=== PATIENT | female | born 1960 | race Caucasian/White ===

== ENCOUNTER 2017-08-10 18:09 | Emergency (ER) | payer MEDICAID, OTHER ==
[~2017-08-10] VITALS: Ht 160 cm; Wt 97.4 kg
[~2017-08-10 18:09] MED LIST: LISI10TA4 PO; NO HOME MEDS
[2017-08-10 19:20] LABS: PROTHROMBIN TIME 10.4 SECONDS (9.0-12.0)
[2017-08-10 19:23] LABS: CLARITY,URINE SLIGHTLY CLOUDY (Clear); COLOR,URINE YELLOW (Yellow); GLUCOSE, URINE NEGATIVE (Neg); KETONES,URINE NEGATIVE (Neg); LEUKOCYTE ESTERASE ,URINE NEGATIVE (Neg); NITRITES, URINE NEGATIVE (Neg); OCCULT BLOOD,URINE NEGATIVE (Neg); PROTEIN,URINE TRACE mg/dl (Neg); UROBILINOGEN,URINE 0.2 E.U/dL (0.2-1.0)
[2017-08-10 19:24] LABS: UA COLLECTION TYPE CLN CATCH MIDSTREAM
[2017-08-10 19:24] LABS: ALANINE AMINOTRANSFERASE 43 U/L (12-78); ALBUMIN 3.4 G/DL (3.4-5.0); ALBUMIN/GLOBULIN RATIO 0.9 (1.1-1.5); ALKALINE PHOSPHATASE 112 IU/L (46-116); ANION GAP 8 (8-16); ASPARTATE AMINO TRANSFERASE 34 U/L (10-37); BILIRUBIN,TOTAL 0.4 MG/DL (0.1-1.0); BLOOD UREA NITROGEN 13 MG/DL (7-18); BUN/CREATININE RATIO 15.1 (6.6-38.0); CALCIUM 8.8 MG/DL (8.5-10.1); CHLORIDE 101 MMOL/L (99-107); CREATININE 0.86 MG/DL (0.40-0.90); GLUCOSE 108 MG/DL (70-104); LIPASE 89 U/L (73-393); POTASSIUM 3.6 MMOL/L (3.5-5.1); SODIUM 133 MMOL/L (135-145); TOTAL CARBON DIOXIDE 24.3 MMOL/L (24-32); TOTAL PROTEIN 7.3 G/DL (6.4-8.2); eGFR 69 ML/MIN
[2017-08-10 19:25] LABS: BASOPHILS % (AUTO) 0.2 % (0-1); EOSINOPHILS # (AUTO) 0.1 X10'3 (0-0.9); EOSINOPHILS % (AUTO) 1.5 % (0-6); HEMATOCRIT 30.4 % (35.0-45.0); HEMOGLOBIN 9.4 g/dl (12.0-16.0); LYMPHOCYTES # (AUTO) 1.4 X10'3 (1.1-4.8); LYMPHOCYTES % (AUTO) 15.3 % (21-51); MEAN CORPUSCULAR HEMOGLOBIN 18.2 PG (27.0-31.0); MEAN CORPUSCULAR HGB CONC 30.7 % (33.0-36.5); MEAN CORPUSCULAR VOLUME 59.2 FL (78-98); MEAN PLATELET VOLUME 8.4 FL (7.4-10.4); MONOCYTES # (AUTO) 0.8 X10'3 (0-0.9); MONOCYTES % (AUTO) 8.4 % (2-12); NEUTROPHILS # (AUTO) 6.7 X10'3 (1.8-7.7); NEUTROPHILS % (AUTO) 74.6 % (42-75); PLATELET COUNT 252 X10'3 (140-440); RED BLOOD COUNT 5.14 X10'6 (4.20-5.60); RED CELL DISTRIBUTION WIDTH 21.8 % (11.5-14.5); WHITE BLOOD COUNT 8.9 X10'3 (4.5-11.0)
[2017-08-10 19:33] LABS: BACTERIA,URINE 4+ /HPF (Neg); MUCUS STRANDS MODERATE /LPF (Neg); RBC,URINE NONE SEEN /HPF (0-2); SQUAMOUS EPITHELIAL CELL,UR MANY /LPF (FEW); WBC,URINE 0-4 /HPF (0-4)
[2017-08-10 19:55] LABS: ANISOCYTOSIS 3+; HYPOCHROMASIA 1+; MICROCYTOSIS 3+; PLATELET ESTIMATE NORMAL; POLYCHROMASIA 1+
[2017-08-10] MEDS ORDERED: normal saline 1000ML IV soln IVB ONE ×2 (19:55→20:35)
[2017-08-10 19:56] LABS: ELLIPTOCYTES 1+; TARGET CELLS 1+
[2017-08-10] MEDS ORDERED: ondansetron/PF 4mg/2ml inj IV ONE (20:35)
[2017-08-10] MEDS ORDERED: ketorolac trometh. 30mg/ml inj. IV ONE (20:35)
[2017-08-10 22:16] VITALS: BP 146/97
== END 2017-08-10 22:17 | disposition home or self-care (01) ==
LOC: ER 18:10
DX: K76.89 Other specified diseases of liver (principal); D64.9 Anemia, unspecified; K59.00 Constipation, unspecified; F15.10 Other stimulant abuse, uncomplicated; Z87.442 Personal history of urinary calculi; Z79.899 Other long term (current) drug therapy
CPT/HCPCS: 36415; 74176; 80053; 81001; 83690; 85025; 85610; 96374; 96375; 99285; J1885; J2405; J7030

== ENCOUNTER 2020-03-11 12:02 | Emergency (ER) | payer MEDICAID ==
[~2020-03-11] VITALS: Ht 165.1 cm; Wt 106.8 kg
[2020-03-11] MEDS ORDERED: mag hydrox/Alum hydrox/simeth 30ml oral suspension PO ONE (14:35)
[2020-03-11] MEDS ORDERED: famotidine 20mg tablet PO ONE (14:35)
[2020-03-11] MEDS ORDERED: pantoprazole 40mg Tablet.DR PO ONE (14:35)
[2020-03-11 14:41] LABS: BASOPHILS # (AUTO) 0.1 X10'3 (0-0.2); BASOPHILS % (AUTO) 0.7 % (0-1); EOSINOPHILS # (AUTO) 0.1 X10'3 (0-0.9); EOSINOPHILS % (AUTO) 0.8 % (0-6); HEMATOCRIT 24.3 % (35.0-45.0); HEMOGLOBIN 7.3 g/dl (12.0-16.0); LYMPHOCYTES # (AUTO) 1.6 X10'3 (1.1-4.8); LYMPHOCYTES % (AUTO) 19.1 % (21-51); MEAN CORPUSCULAR HEMOGLOBIN 16.7 PG (27.0-31.0); MEAN CORPUSCULAR HGB CONC 30.1 g/dL (33.0-36.5); MEAN CORPUSCULAR VOLUME 55.5 FL (78-98); MEAN PLATELET VOLUME 8.3 FL (7.4-10.4); MONOCYTES # (AUTO) 0.5 X10'3 (0-0.9); MONOCYTES % (AUTO) 6.3 % (2-12); NEUTROPHILS % (AUTO) 73.1 % (42-75); PLATELET COUNT 353 X10'3 (140-440); RED BLOOD COUNT 4.38 X10'6 (4.20-5.60); RED CELL DISTRIBUTION WIDTH 22.9 % (11.5-14.5); WHITE BLOOD COUNT 8.2 X10'3 (4.5-11.0)
[2020-03-11 14:55] LABS: ALANINE AMINOTRANSFERASE 23 U/L (12-78); ALBUMIN 3.1 G/DL (3.4-5.0); ALBUMIN/GLOBULIN RATIO 0.8 (1.1-1.5); ALKALINE PHOSPHATASE 103 IU/L (46-116); ANION GAP 9 (8-16); ASPARTATE AMINO TRANSFERASE 14 U/L (10-37); BILIRUBIN,TOTAL 0.3 MG/DL (0.1-1.0); BLOOD UREA NITROGEN 20 MG/DL (7-18); CALCIUM 9.1 MG/DL (8.5-10.1); CHLORIDE 106 MMOL/L (99-107); GLUCOSE 106 MG/DL (70-104); POTASSIUM 4.4 MMOL/L (3.5-5.1); SODIUM 142 MMOL/L (135-145); TOTAL CARBON DIOXIDE 26.9 MMOL/L (24-32); TOTAL PROTEIN 6.8 G/DL (6.4-8.2); eGFR 57 ML/MIN
[2020-03-11 15:01] LABS: ANISOCYTOSIS 3+; HYPOCHROMASIA 1+; MICROCYTOSIS 3+; PLATELET ESTIMATE NORMAL; POLYCHROMASIA FEW
[2020-03-11 15:02] LABS: ELLIPTOCYTES 1+; TARGET CELLS FEW; TEAR DROP CELLS FEW
[2020-03-11] MEDS ORDERED: normal saline 1000ml 1,000 ML IV ONE (15:10)
--- NOTE | 2020-03-11 15:27 | NUR ---
TC FROM [facility] FOR CONDITION REPORT.
[2020-03-11 16:15] VITALS: BP 126/79
== END 2020-03-11 16:16 | disposition home or self-care (01) ==
LOC: ER 12:03
DX: D50.9 Iron deficiency anemia, unspecified (principal); R06.02 Shortness of breath; R07.89 Other chest pain; F15.90 Other stimulant use, unspecified, uncomplicated; Z87.442 Personal history of urinary calculi; Z98.890 Other specified postprocedural states; Z79.899 Other long term (current) drug therapy
CPT/HCPCS: 36415; 71045; 80053; 85008; 85025; 96360; 99284; J7030

== ENCOUNTER 2020-03-27 13:48 | Inpatient (IN) | payer MEDICAID ==
[~2020-03-27] VITALS: Ht 162.6 cm; Wt 100.5 kg
[2020-03-27] MEDS ORDERED: ondansetron/PF 4mg/2ml inj IV ONE (14:10)
[2020-03-27 14:14] LABS: BASOPHILS % (AUTO) 0.4 % (0-1); EOSINOPHILS # (AUTO) 0.1 X10'3 (0-0.9); EOSINOPHILS % (AUTO) 1.7 % (0-6); LYMPHOCYTES # (AUTO) 1.4 X10'3 (1.1-4.8); LYMPHOCYTES % (AUTO) 16.5 % (21-51); MEAN CORPUSCULAR HEMOGLOBIN 16.4 PG (27.0-31.0); MEAN CORPUSCULAR HGB CONC 29.1 g/dL (33.0-36.5); MEAN CORPUSCULAR VOLUME 56.4 FL (78-98); MEAN PLATELET VOLUME 8.6 FL (7.4-10.4); MONOCYTES # (AUTO) 0.7 X10'3 (0-0.9); MONOCYTES % (AUTO) 8.6 % (2-12); NEUTROPHILS % (AUTO) 72.8 % (42-75); PLATELET COUNT 176 X10'3 (140-440); RED BLOOD COUNT 3.87 X10'6 (4.20-5.60); RED CELL DISTRIBUTION WIDTH 21.9 % (11.5-14.5); WHITE BLOOD COUNT 8.2 X10'3 (4.5-11.0)
[2020-03-27 14:21] LABS: HEMATOCRIT 21.9 % (35.0-45.0); HEMOGLOBIN 6.4 g/dl (12.0-16.0)
[2020-03-27 14:29] LABS: ALANINE AMINOTRANSFERASE 21 U/L (12-78); ALBUMIN 2.9 G/DL (3.4-5.0); ALBUMIN/GLOBULIN RATIO 0.8 (1.1-1.5); ALKALINE PHOSPHATASE 101 IU/L (46-116); ANION GAP 10 (8-16); ASPARTATE AMINO TRANSFERASE 14 U/L (10-37); BILIRUBIN,TOTAL 0.2 MG/DL (0.1-1.0); BLOOD UREA NITROGEN 19 MG/DL (7-18); BUN/CREATININE RATIO 19.4 (6.6-38.0); CALCIUM 8.4 MG/DL (8.5-10.1); CHLORIDE 108 MMOL/L (99-107); CREATININE 0.98 MG/DL (0.40-0.90); GLUCOSE 115 MG/DL (70-104); SODIUM 142 MMOL/L (135-145); TOTAL CARBON DIOXIDE 23.9 MMOL/L (24-32); TOTAL PROTEIN 6.5 G/DL (6.4-8.2); eGFR 58 ML/MIN
[2020-03-27 14:53] LABS: ANISOCYTOSIS 3+; MICROCYTOSIS 3+; PLATELET ESTIMATE NORMAL
[2020-03-27 14:56] LABS: HYPOCHROMASIA 2+
[2020-03-27 14:58] LABS: ELLIPTOCYTES FEW; POLYCHROMASIA 1+; SCHISTOCYTES FEW; TEAR DROP CELLS FEW
[2020-03-27] MEDS ORDERED: APIX5TAB3 PO (14:59)
--- NOTE | 2020-03-27 15:32 | NUR ---
dr goldsmith at bedside doing rectal examination with faisal kaur at bedside .will cont to monitor.
--- NOTE | 2020-03-27 16:11 | NUR ---
pt requested that she need ice chips.notified dr butterfield who came to do rounds on room 4 ,as per md mack to give ice chips to the pt.
[2020-03-27] MEDS ORDERED: morphine 2 MG/ML inj. syringe IV PRN (16:25)
[2020-03-27] MEDS ORDERED: docusate sod 100mg capsule PO PRN (16:25)
[2020-03-27] MEDS ORDERED: ondansetron/PF 4mg/2ml inj IV PRN (16:25)
[2020-03-27] MEDS ORDERED: acetaminophen 325mg tablet PO PRN ×2 (16:25)
[2020-03-27] MEDS ORDERED: HYDROcodone/acetaminophen 5mg/325mg tablet PO PRN (16:25)
[2020-03-27] MEDS ORDERED: potassium Cl 40MEQ/1/2NS 520ml 520 ML IV PRN ×2 (16:30)
[2020-03-27] MEDS ORDERED: regadenoson 0.4mg/5ml syringe IV PRN (16:30)
[2020-03-27] MEDS ORDERED: magnesium Cl slow-release 64mg tablet PO PRN (16:30)
[2020-03-27] MEDS ORDERED: potassium Cl 20 mEq SR tablet PO PRN ×2 (16:30)
[2020-03-27] MEDS ORDERED: magnesium 4gm in 100ml NS 100 ML IV PRN (16:30)
[2020-03-27] MEDS ORDERED: metoprolol tartrate 1mg/ml inj IV PRN (16:30)
[2020-03-27] MEDS ORDERED: nitroGLYCERIN 0.4mg SUBLingual tab SL PRN (16:30)
[2020-03-27] MEDS ORDERED: magnesium 2GM in 50ml NS 50 ML IV PRN (16:30)
[2020-03-27] MEDS ORDERED: aminophylline 250mg/10ml inj. IV PRN (16:30)
[2020-03-27] MEDS: normal saline 1000ml 1,000 ML IV SCH (16:47)
[2020-03-27 16:55] LABS: OCCULT BLOOD STOOL NEGATIVE (Neg)
[2020-03-27 18:00] VITALS: BP 174/120
[2020-03-27 18:24] VITALS: BP 176/111
[2020-03-27 18:51] VITALS: BP 173/105
[2020-03-27 19:25] VITALS: BP 153/88
[2020-03-27] MEDS: heparin, porcine 5000 units/ml vial SQ SCH (20:00)
[2020-03-27] MEDS: K and/or MAG REPLACEMENT MC SCH (20:00)
[2020-03-27 20:39] LABS: BASOPHILS % (AUTO) 0.5 % (0-1); EOSINOPHILS # (AUTO) 0.1 X10'3 (0-0.9); EOSINOPHILS % (AUTO) 1.6 % (0-6); LYMPHOCYTES # (AUTO) 1.8 X10'3 (1.1-4.8); LYMPHOCYTES % (AUTO) 22.6 % (21-51); MEAN PLATELET VOLUME 8.3 FL (7.4-10.4); MONOCYTES # (AUTO) 0.7 X10'3 (0-0.9); MONOCYTES % (AUTO) 9.1 % (2-12); NEUTROPHILS # (AUTO) 5.2 X10'3 (1.8-7.7); NEUTROPHILS % (AUTO) 66.2 % (42-75); PLATELET COUNT 179 X10'3 (140-440)
[2020-03-27 21:17] LABS: HEMATOCRIT 24.4 % (35.0-45.0); HEMOGLOBIN 7.8 g/dl (12.0-16.0); MEAN CORPUSCULAR HGB CONC 31.8 g/dL (33.0-36.5); MEAN CORPUSCULAR VOLUME 59.6 FL (78-98); RED CELL DISTRIBUTION WIDTH 23.6 % (11.5-14.5); WHITE BLOOD COUNT 7.8 X10'3 (4.5-11.0)
[2020-03-27] MEDS: mag hydrox/Alum hydrox/simeth 30ml oral suspension PO PRN (21:34)
[2020-03-27 21:59] LABS: ANISOCYTOSIS 3+; ELLIPTOCYTES 1+; HYPOCHROMASIA 2+; PLATELET ESTIMATE NORMAL; TEAR DROP CELLS FEW
[2020-03-27 22:50] VITALS: BP 146/90
[2020-03-28] VITALS (8 sets, daily range): BP systolic 127–177; BP diastolic 77–96
[2020-03-28 02:55] LABS: BASOPHILS % (AUTO) 0.6 % (0-1); EOSINOPHILS # (AUTO) 0.2 X10'3 (0-0.9); EOSINOPHILS % (AUTO) 2.7 % (0-6); HEMATOCRIT 23.3 % (35.0-45.0); LYMPHOCYTES # (AUTO) 1.5 X10'3 (1.1-4.8); LYMPHOCYTES % (AUTO) 26.5 % (21-51); MEAN CORPUSCULAR HEMOGLOBIN 17.8 PG (27.0-31.0); MEAN CORPUSCULAR HGB CONC 29.7 g/dL (33.0-36.5); MEAN CORPUSCULAR VOLUME 59.8 FL (78-98); MEAN PLATELET VOLUME 8.4 FL (7.4-10.4); MONOCYTES # (AUTO) 0.6 X10'3 (0-0.9); MONOCYTES % (AUTO) 9.9 % (2-12); NEUTROPHILS # (AUTO) 3.4 X10'3 (1.8-7.7); NEUTROPHILS % (AUTO) 60.3 % (42-75); PLATELET COUNT 160 X10'3 (140-440); RED BLOOD COUNT 3.89 X10'6 (4.20-5.60); RED CELL DISTRIBUTION WIDTH 24.2 % (11.5-14.5); WHITE BLOOD COUNT 5.7 X10'3 (4.5-11.0)
[2020-03-28 03:04] LABS: ALANINE AMINOTRANSFERASE 20 U/L (12-78); ALBUMIN 2.8 G/DL (3.4-5.0); ALBUMIN/GLOBULIN RATIO 0.8 (1.1-1.5); ALKALINE PHOSPHATASE 93 IU/L (46-116); ANION GAP 6 (8-16); ASPARTATE AMINO TRANSFERASE 15 U/L (10-37); BILIRUBIN,TOTAL 0.5 MG/DL (0.1-1.0); BLOOD UREA NITROGEN 16 MG/DL (7-18); CALCIUM 8.4 MG/DL (8.5-10.1); CHLORIDE 109 MMOL/L (99-107); CREATININE 0.94 MG/DL (0.40-0.90); GLUCOSE 104 MG/DL (70-104); SODIUM 142 MMOL/L (135-145); TOTAL PROTEIN 6.1 G/DL (6.4-8.2); eGFR 61 ML/MIN
[2020-03-28 03:08] LABS: CHOLESTEROL 161 MG/DL (0-200); HDL CHOLESTEROL 40 MG/DL (35-60); LDL CHOLESTEROL 102 MG/DL (50-100); MAGNESIUM 1.9 MG/DL (1.5-2.4); TRIGLYCERIDES 83 MG/DL (20-135)
[2020-03-28 03:15] LABS: ANISOCYTOSIS 3+; ELLIPTOCYTES 1+; HYPOCHROMASIA 2+; MICROCYTOSIS 2+; PLATELET ESTIMATE NORMAL; TOTAL CELLS COUNTED 100
--- NOTE | 2020-03-28 05:26 | NUR ---
Patient had c/o mid sternum chest pain. Maalox given which resolved chest pain. Patient advised that she has reflux/indigestion that wakes her up at night at home and she drinks about a half gallon of milk due to this. She also reported that she had a extra crispy chicken meal prior to presenting to the ER with chest pressure. Pt given Maalox x2 which resolved chest pressure/pain.
--- NOTE | 2020-03-28 06:25 | NUR ---
Patient in room PCU 3027. I have received report from Demetra BHARDWAJ and had the opportunity to ask questions and assume patient care.
[2020-03-28] MEDS: normal saline 1000ml 1,000 ML IV SCH ×2 (06:43→20:19)
--- NOTE | 2020-03-28 07:55 | NUR ---
PAGER ID: [phone] MESSAGE: German Luo [id number] Pt. has critical H&H 6.9.3 down from yesterday 7.8.4. Are you still ok with Tara this AM? Toña [phone]
[2020-03-28] MEDS: heparin, porcine 5000 units/ml vial SQ SCH ×2 (08:00→19:54)
[2020-03-28] MEDS: K and/or MAG REPLACEMENT MC SCH ×2 (08:00→19:44)
[2020-03-28] MEDS: pantoprazole 40mg Tablet.DR PO SCH (09:29)
--- NOTE | 2020-03-28 09:39 | NUR ---
Attempted to notify charge but he is unavailable at the moment.
--- NOTE | 2020-03-28 09:42 | NUR ---
Spoke with Charleen on the telephone. NOtified him of critical Hemoglobin. States it is ok to send to [facility]. Pt. c/o 06/24 chest pain sharp intermitant and denies it being pleuritic. Radiatyes to uper back and shoulders. made aware, but states that STAT EKGS per pro should be canceled. Will put in as an order.
[2020-03-28] MEDS: nicotine 14mg patch - 24hr TD SCH (09:48)
--- NOTE | 2020-03-28 10:30 | NUR ---
Found pt. with breakfast tray in her room even tho NPO written on whiteboard. Pt. educated extensively not to eat before lexiscan. Pt. wanted tray left in room so she could eat it after Lexiscan test was completed. Left room to care for other pts. Was notified that pt. ate her breakfast by [employer]. Went in to speak with pt. who stated some mysterious man came in after primary RN and stated she could eat. MD Villaseñor notified. Jennifer canceled and states possible discharge today.
[2020-03-28] MEDS: sodium ferric gluc complex inj 125 MG in normal saline 100ml IV soln 90 ML IV SCH (11:27)
[2020-03-28 13:20] LABS: HEMOGLOBIN 6.9 g/dl (12.0-16.0)
--- NOTE | 2020-03-28 13:28 | NUR ---
PAGER ID: [phone] MESSAGE: Araseli FOLEY [id number] 6 BEAT RUN OF V-TACH HR IN 110S 124/85 BP. ANDRE [id number]
--- NOTE | 2020-03-28 18:30 | NUR ---
Patient in room PCU 3027. I have received report from Toña BHARDWAJ and had the opportunity to ask questions and assume patient care.
--- NOTE | 2020-03-28 18:35 | NUR ---
GAVE REPORT TO RUCHI BHARDWAJ
--- NOTE | 2020-03-28 22:17 | NUR ---
Problems reprioritized. Patient report given, questions answered & plan of care reviewed with Andreas RN.
[2020-03-28 22:52] LABS: EOSINOPHILS # (AUTO) 0.2 X10'3 (0-0.9)
[2020-03-28 22:58] LABS: BASOPHILS % (AUTO) 0.7 % (0-1); MONOCYTES # (AUTO) 0.7 X10'3 (0-0.9); WHITE BLOOD COUNT 6.8 X10'3 (4.5-11.0)
[2020-03-28 23:00] LABS: EOSINOPHILS % (AUTO) 2.6 % (0-6); HEMATOCRIT 26.9 % (35.0-45.0); HEMOGLOBIN 8.1 g/dl (12.0-16.0); LYMPHOCYTES # (AUTO) 1.7 X10'3 (1.1-4.8); LYMPHOCYTES % (AUTO) 24.3 % (21-51); MEAN CORPUSCULAR HEMOGLOBIN 19.5 PG (27.0-31.0); MEAN CORPUSCULAR HGB CONC 30.3 g/dL (33.0-36.5); MEAN CORPUSCULAR VOLUME 64.3 FL (78-98); MEAN PLATELET VOLUME 8.7 FL (7.4-10.4); MONOCYTES % (AUTO) 10.1 % (2-12); NEUTROPHILS # (AUTO) 4.2 X10'3 (1.8-7.7); NEUTROPHILS % (AUTO) 62.3 % (42-75); RED BLOOD COUNT 4.18 X10'6 (4.20-5.60); RED CELL DISTRIBUTION WIDTH 32.1 % (11.5-14.5)
[2020-03-28 23:04] LABS: PLATELET COUNT 150 X10'3 (140-440)
[2020-03-29] VITALS (17 sets, daily range): BP systolic 120–152; BP diastolic 69–110
[2020-03-29] MEDS: mag hydrox/Alum hydrox/simeth 30ml oral suspension PO PRN (02:34)
[2020-03-29 06:00] LABS: BASOPHILS % (AUTO) 0.3 % (0-1); EOSINOPHILS # (AUTO) 0.2 X10'3 (0-0.9); HEMATOCRIT 27.2 % (35.0-45.0); HEMOGLOBIN 8.2 g/dl (12.0-16.0); LYMPHOCYTES # (AUTO) 1.4 X10'3 (1.1-4.8); LYMPHOCYTES % (AUTO) 22.9 % (21-51); MEAN CORPUSCULAR HEMOGLOBIN 19.4 PG (27.0-31.0); MEAN CORPUSCULAR HGB CONC 30.2 g/dL (33.0-36.5); MEAN CORPUSCULAR VOLUME 64.3 FL (78-98); MEAN PLATELET VOLUME 8.4 FL (7.4-10.4); MONOCYTES # (AUTO) 0.6 X10'3 (0-0.9); MONOCYTES % (AUTO) 9.5 % (2-12); NEUTROPHILS # (AUTO) 3.8 X10'3 (1.8-7.7); NEUTROPHILS % (AUTO) 64.3 % (42-75); PLATELET COUNT 152 X10'3 (140-440); RED BLOOD COUNT 4.23 X10'6 (4.20-5.60); RED CELL DISTRIBUTION WIDTH 32.7 % (11.5-14.5)
[2020-03-29 06:19] LABS: ALANINE AMINOTRANSFERASE 17 U/L (12-78); ALBUMIN 2.7 G/DL (3.4-5.0); ALBUMIN/GLOBULIN RATIO 0.8 (1.1-1.5); ALKALINE PHOSPHATASE 92 IU/L (46-116); ANION GAP 9 (8-16); ASPARTATE AMINO TRANSFERASE 15 U/L (10-37); BILIRUBIN,TOTAL 0.7 MG/DL (0.1-1.0); BLOOD UREA NITROGEN 12 MG/DL (7-18); BUN/CREATININE RATIO 13.8 (6.6-38.0); CALCIUM 8.3 MG/DL (8.5-10.1); CHLORIDE 108 MMOL/L (99-107); CREATININE 0.87 MG/DL (0.40-0.90); GLUCOSE 102 MG/DL (70-104); SODIUM 142 MMOL/L (135-145); TOTAL CARBON DIOXIDE 24.9 MMOL/L (24-32); TOTAL PROTEIN 6.1 G/DL (6.4-8.2); eGFR 67 ML/MIN
[2020-03-29 06:37] LABS: ANISOCYTOSIS 3+; MICROCYTOSIS 2+; PLATELET ESTIMATE NORMAL
--- NOTE | 2020-03-29 06:37 | NUR ---
GIVEN REPORT TO APRIL, PLAN OF CARE REVIEWED. PATIENT NPO SINCE LAST NIGHT FOR NISHI TODAY. REST ON BED QUIETLY
[2020-03-29 06:38] LABS: ELLIPTOCYTES 1+; POLYCHROMASIA FEW; SCHISTOCYTES FEW
[2020-03-29] MEDS: pantoprazole 40mg Tablet.DR PO SCH (07:05)
[2020-03-29] MEDS: nicotine 14mg patch - 24hr TD SCH (07:05)
[2020-03-29] MEDS: heparin, porcine 5000 units/ml vial SQ SCH (07:06)
[2020-03-29] MEDS: K and/or MAG REPLACEMENT MC SCH ×2 (07:15→20:00)
[2020-03-29] MEDS: normal saline 1000ml 1,000 ML IV SCH (07:18)
[2020-03-29] MEDS: sodium ferric gluc complex inj 125 MG in normal saline 100ml IV soln 90 ML IV SCH (10:10)
--- NOTE | 2020-03-29 11:50 | NUR ---
Paged Dr Villaseñor " PAGER ID: [phone] MESSAGE: [phone] [address] [phone] Araseli Luo. Jennifer Scan resulted. Patient very anxious about wanting to eat. Can we feed her?"
[2020-03-29] MEDS ORDERED: LIDOcaine/PRILOcaine 5gm cream TP ONE (15:00)
[2020-03-29] MEDS ORDERED: nitroGLYCERIN-Tridil 50MG/D5W 250 ML IV ONE (15:47)
[2020-03-29] MEDS ORDERED: midazolam 2 mg/2 ml injection ONE (15:47)
[2020-03-29] MEDS ORDERED: verapamil 2.5 mg/ml inj IV ONE (15:47)
[2020-03-29] MEDS ORDERED: iohexol 350MG/ML 100ml bottle IV ONE ×2 (15:48→16:46)
[2020-03-29] MEDS ORDERED: LIDOcaine 1% (10mg/ml)w/preservative injection 20ml MDV ONE (15:48)
[2020-03-29] MEDS ORDERED: heparin 1,000unit/ml 10ml vial 10 ML ONE (15:48)
[2020-03-29] MEDS ORDERED: fentaNYL/PF 50MCG/1 ML 2ML syringe ONE (15:48)
[2020-03-29] MEDS ORDERED: iohexol 350 MG/ML 50ML vial IV ONE (16:47)
[2020-03-29] MEDS ORDERED: OXAZEpam 15mg capsule PO PRN (17:30)
[2020-03-29] MEDS ORDERED: proCHLORperazine 10 MG/2 ml inj IV PRN (17:30)
[2020-03-29] MEDS ORDERED: HYDROcodone/acetaminophen 5mg/325mg tablet PO PRN (17:30)
[2020-03-29] MEDS ORDERED: HYDROcodone/acetaminophen 10/325mg tab PO PRN (17:30)
--- NOTE | 2020-03-29 18:21 | NUR ---
Patient in room PCU 3027. I have received report from Michell BHARDWAJ and had the opportunity to ask questions and assume patient care.
[2020-03-30] MEDS: normal saline 1000ml 1,000 ML IV SCH (01:39)
[2020-03-30 02:00] VITALS: BP 137/85
[2020-03-30 06:00] VITALS: BP 141/95
[2020-03-30 06:20] LABS: BASOPHILS % (AUTO) 0.5 % (0-1); EOSINOPHILS # (AUTO) 0.1 X10'3 (0-0.9); EOSINOPHILS % (AUTO) 2.2 % (0-6); HEMATOCRIT 25.8 % (35.0-45.0); HEMOGLOBIN 7.8 g/dl (12.0-16.0); LYMPHOCYTES # (AUTO) 1.1 X10'3 (1.1-4.8); LYMPHOCYTES % (AUTO) 19.2 % (21-51); MEAN CORPUSCULAR HEMOGLOBIN 19.7 PG (27.0-31.0); MEAN CORPUSCULAR HGB CONC 30.3 g/dL (33.0-36.5); MEAN CORPUSCULAR VOLUME 64.9 FL (78-98); MEAN PLATELET VOLUME 8.8 FL (7.4-10.4); MONOCYTES # (AUTO) 0.5 X10'3 (0-0.9); MONOCYTES % (AUTO) 8.2 % (2-12); NEUTROPHILS # (AUTO) 4.1 X10'3 (1.8-7.7); NEUTROPHILS % (AUTO) 69.9 % (42-75); PLATELET COUNT 148 X10'3 (140-440); RED BLOOD COUNT 3.97 X10'6 (4.20-5.60); RED CELL DISTRIBUTION WIDTH 33.8 % (11.5-14.5); WHITE BLOOD COUNT 5.9 X10'3 (4.5-11.0)
--- NOTE | 2020-03-30 06:21 | NUR ---
Problems reprioritized. Patient report given, questions answered & plan of care reviewed with Lore BHARDWAJ.
[2020-03-30 06:24] LABS: ALANINE AMINOTRANSFERASE 17 U/L (12-78); ALBUMIN 2.6 G/DL (3.4-5.0); ALBUMIN/GLOBULIN RATIO 0.8 (1.1-1.5); ANION GAP 7 (8-16); ASPARTATE AMINO TRANSFERASE 15 U/L (10-37); BILIRUBIN,TOTAL 0.3 MG/DL (0.1-1.0); BLOOD UREA NITROGEN 12 MG/DL (7-18); BUN/CREATININE RATIO 14.5 (6.6-38.0); CALCIUM 8.1 MG/DL (8.5-10.1); CHLORIDE 110 MMOL/L (99-107); CREATININE 0.83 MG/DL (0.40-0.90); GLUCOSE 113 MG/DL (70-104); MAGNESIUM 2.1 MG/DL (1.5-2.4); POTASSIUM 3.8 MMOL/L (3.5-5.1); SODIUM 143 MMOL/L (135-145); TOTAL CARBON DIOXIDE 26.3 MMOL/L (24-32); TOTAL PROTEIN 5.8 G/DL (6.4-8.2); eGFR 71 ML/MIN
--- NOTE | 2020-03-30 06:25 | NUR ---
Patient in room PCU 3027. I have received report from LASHAE Askew and had the opportunity to ask questions and assume patient care.
[2020-03-30 06:34] LABS: ALKALINE PHOSPHATASE 87 IU/L (46-116)
[2020-03-30 07:05] LABS: ANISOCYTOSIS 3+; HYPOCHROMASIA 1+; MICROCYTOSIS 2+; PLATELET ESTIMATE NORMAL
[2020-03-30 07:06] LABS: ELLIPTOCYTES FEW; POLYCHROMASIA FEW
[2020-03-30 07:07] LABS: SCHISTOCYTES FEW
[2020-03-30] MEDS: pantoprazole 40mg Tablet.DR PO SCH ×2 (07:30→09:54)
[2020-03-30] MEDS: K and/or MAG REPLACEMENT MC SCH (08:00)
[2020-03-30] MEDS: nicotine 14mg patch - 24hr TD SCH (08:00)
[2020-03-30] MEDS: sodium ferric gluc complex inj 125 MG in normal saline 100ml IV soln 90 ML IV SCH (09:55)
[2020-03-30 11:37] VITALS: BP 146/94
[2020-03-30] MEDS ORDERED: METO-395 PO (13:03)
[2020-03-30] MEDS ORDERED: FERR325T28 PO (13:03)
[2020-03-30] MEDS ORDERED: ALBU8.5H8 INH (13:03)
[2020-03-30] MEDS ORDERED: ASCO500C18 PO (13:03)
[2020-03-30] MEDS ORDERED: NICO-631 TD (13:03)
[2020-03-30] MEDS ORDERED: PANT40TA54 PO (13:03)
--- NOTE | 2020-03-30 13:30 | NUR ---
Patient stable for discharge per md orders. [facility] sent to [facility]. IV cannula's discontinued and intact. Tele monitor take off . Armbands cut at time of discharge. Patient wheeled to the lobby by PCT. Private vehicle awaiting patient in parking lot.
== END 2020-03-30 13:43 | disposition home or self-care (01) | DRG 191 ==
LOC: ER 13:49 → ED HOLD 16:23 → PCU 3S 19:20
PROVIDERS: ADMIT Internal Medicine; ATTEND Internal Medicine
PROC: 30233N1 Transfusion of Nonautologous Red Blood Cells into Peripheral Vein, Percutaneous Approach (ICD-10-PCS; 2020-03-27)
PROC: 4A023N7 Measurement of Cardiac Sampling and Pressure, Left Heart, Percutaneous Approach (ICD-10-PCS; principal; 2020-03-29)
PROC: B2111ZZ Fluoroscopy of Multiple Coronary Arteries using Low Osmolar Contrast (ICD-10-PCS; 2020-03-29)
PROC: B2151ZZ Fluoroscopy of Left Heart using Low Osmolar Contrast (ICD-10-PCS; 2020-03-29)
PROC: 4A02XM4 Measurement of Cardiac Total Activity, External Approach (ICD-10-PCS; 2020-03-29)
PROC: 3E073KZ Introduction of Other Diagnostic Substance into Coronary Artery, Percutaneous Approach (ICD-10-PCS; 2020-03-29)
DX: I24.9 Acute ischemic heart disease, unspecified (principal); D64.9 Anemia, unspecified; F12.90 Cannabis use, unspecified, uncomplicated; F17.200 Nicotine dependence, unspecified, uncomplicated; I47.2 Ventricular tachycardia; I48.91 Unspecified atrial fibrillation; K21.9 Gastro-esophageal reflux disease without esophagitis; Z79.01 Long term (current) use of anticoagulants; Z86.711 Personal history of pulmonary embolism; Z87.442 Personal history of urinary calculi; Z71.6 Tobacco abuse counseling
CPT/HCPCS: 36415; 36430; 71045; 78452; 80053; 80061; 82272; 82728; 83540; 83550; 83735; 83880; 84443; 84484; 85007; 85008; 85025; 86870; 86885; 86900; 86901; 86902; 86905; 86922; 93005; 93017; 93306; 93458; 96374; 97110; 97161; 97530; 99152; 99153; 99285; A4620; A5120; A9500; C1769; C1894; G0378; J1644; J2001; J2250; J2270; J2405; J2785; J2916; J3010; J3490; J7030; P9016; Q9967

== ENCOUNTER 2020-04-15 23:48 | Emergency (ER) | payer MEDICAID ==
[~2020-04-15] VITALS: Ht 162.6 cm; Wt 109.0 kg
[~2020-04-15 23:48] MED LIST changes: +ALBU8.5H8 INH; +APIX5TAB3 PO; +ASCO500C18 PO; +FERR325T28 PO; -LISI10TA4 PO; +METO-395 PO; +NICO-631 TD; -NO HOME MEDS; +PANT40TA54 PO
[2020-04-16 00:03] VITALS: BP 138/81
[2020-04-16] MEDS ORDERED: sulfamethoxazole/trimethoprim DS (800/160mg) tablet PO ONE (00:50)
[2020-04-16] MEDS ORDERED: acetaminophen 325mg tablet PO ONE (00:50)
[2020-04-16] MEDS ORDERED: cephalexin 250mg capsule PO ONE (00:50)
[2020-04-16] MEDS ORDERED: SULF1TAB49 PO (00:57)
[2020-04-16] MEDS ORDERED: CEPH500C5 PO (00:57)
== END 2020-04-16 01:08 | disposition home or self-care (01) ==
LOC: ER 23:49
DX: L03.116 Cellulitis of left lower limb (principal); L03.115 Cellulitis of right lower limb; Z79.2 Long term (current) use of antibiotics; Z79.899 Other long term (current) drug therapy; Z87.442 Personal history of urinary calculi; Z86.2 Personal history of diseases of the blood and blood-forming organs and certain disorders involving the immune mechanism; Z86.16 Personal history of COVID-19
CPT/HCPCS: 99284

== ENCOUNTER 2020-05-08 18:45 | Emergency (ER) | payer MEDICAID ==
[~2020-05-08] VITALS: Ht 162.6 cm; Wt 100.5 kg
[~2020-05-08 18:45] MED LIST changes: +CEPH-585 PO; -FERR325T28 PO
[2020-05-08 18:49] VITALS: BP 171/101
[2020-05-08] MEDS ORDERED: SULF1TAB49 PO (20:05)
[2020-05-08] MEDS ORDERED: CEPH-585 PO (20:05)
== END 2020-05-08 20:16 | disposition home or self-care (01) ==
LOC: ER 18:46
DX: L03.115 Cellulitis of right lower limb (principal); F12.90 Cannabis use, unspecified, uncomplicated; Z87.442 Personal history of urinary calculi; Z86.2 Personal history of diseases of the blood and blood-forming organs and certain disorders involving the immune mechanism; Z95.5 Presence of coronary angioplasty implant and graft; Z79.899 Other long term (current) drug therapy
CPT/HCPCS: 99281; 99283

== ENCOUNTER 2020-07-07 21:46 | Emergency (ER) | payer MEDICAID ==
[~2020-07-07] VITALS: Ht 162.6 cm; Wt 104.5 kg
[2020-07-07 23:03] LABS: BASOPHILS % (AUTO) 0.3 % (0-1); EOSINOPHILS # (AUTO) 0.2 X10'3 (0-0.9); EOSINOPHILS % (AUTO) 2.8 % (0-6); HEMOGLOBIN 14.1 g/dl (12.0-16.0); LYMPHOCYTES # (AUTO) 1.9 X10'3 (1.1-4.8); LYMPHOCYTES % (AUTO) 27.9 % (21-51); MEAN CORPUSCULAR HEMOGLOBIN 27.8 PG (27.0-31.0); MEAN CORPUSCULAR HGB CONC 33.5 g/dL (33.0-36.5); MEAN CORPUSCULAR VOLUME 82.9 FL (78-98); MEAN PLATELET VOLUME 8.7 FL (7.4-10.4); MONOCYTES # (AUTO) 0.6 X10'3 (0-0.9); MONOCYTES % (AUTO) 8.4 % (2-12); NEUTROPHILS # (AUTO) 4.1 X10'3 (1.8-7.7); NEUTROPHILS % (AUTO) 60.6 % (42-75); PLATELET COUNT 208 X10'3 (140-440); RED BLOOD COUNT 5.07 X10'6 (4.20-5.60); RED CELL DISTRIBUTION WIDTH 13.8 % (11.5-14.5); WHITE BLOOD COUNT 6.7 X10'3 (4.5-11.0)
[2020-07-07 23:24] LABS: ALANINE AMINOTRANSFERASE 22 U/L (12-78); ALBUMIN 3.3 G/DL (3.4-5.0); ALBUMIN/GLOBULIN RATIO 0.9 (1.1-1.5); ALKALINE PHOSPHATASE 125 IU/L (46-116); ANION GAP 10 (8-16); ASPARTATE AMINO TRANSFERASE 19 U/L (10-37); BILIRUBIN,TOTAL 0.2 MG/DL (0.1-1.0); BLOOD UREA NITROGEN 30 MG/DL (7-18); BUN/CREATININE RATIO 31.6 (6.6-38.0); CALCIUM 8.8 MG/DL (8.5-10.1); CHLORIDE 107 MMOL/L (99-107); CREATININE 0.95 MG/DL (0.40-0.90); GLUCOSE 91 MG/DL (70-104); POTASSIUM 4.6 MMOL/L (3.5-5.1); SODIUM 142 MMOL/L (135-145); TOTAL CARBON DIOXIDE 24.6 MMOL/L (24-32); eGFR 61 ML/MIN
--- NOTE | 2020-07-07 23:34 | NUR ---
Pt is 59 yo female c/o increased tingling to right side of body (rt lat forearm and posterior upper arm, rt lateral chest and rt lateral and medial leg), pt has been following up with PMD, has MRI scheduled July 19 to eval tingling, pt is resting quietly on gurney waiting for lab results
[2020-07-07 23:37] VITALS: BP 140/82
== END 2020-07-07 23:51 | disposition home or self-care (01) ==
LOC: ER 21:47
DX: R20.2 Paresthesia of skin (principal); F12.90 Cannabis use, unspecified, uncomplicated; Z86.2 Personal history of diseases of the blood and blood-forming organs and certain disorders involving the immune mechanism; Z87.442 Personal history of urinary calculi; Z98.890 Other specified postprocedural states; Z79.2 Long term (current) use of antibiotics; Z79.899 Other long term (current) drug therapy
CPT/HCPCS: 36415; 80053; 85025; 93005; 99284

== ENCOUNTER 2020-07-26 18:36 | Emergency (ER) | payer MEDICAID ==
[~2020-07-26] VITALS: Ht 162.6 cm; Wt 104.5 kg
[2020-07-26] MEDS ORDERED: [UNRECOGNIZED DRUG - CODE] (20:50)
[2020-07-26 21:10] LABS: ALANINE AMINOTRANSFERASE 23 U/L (12-78); ALBUMIN 3.4 G/DL (3.4-5.0); ALBUMIN/GLOBULIN RATIO 0.9 (1.1-1.5); ALKALINE PHOSPHATASE 118 IU/L (46-116); ANION GAP 9 (8-16); ASPARTATE AMINO TRANSFERASE 17 U/L (10-37); BILIRUBIN,TOTAL 0.2 MG/DL (0.1-1.0); BLOOD UREA NITROGEN 21 MG/DL (7-18); CALCIUM 8.6 MG/DL (8.5-10.1); CHLORIDE 107 MMOL/L (99-107); CREATININE 0.84 MG/DL (0.40-0.90); GLUCOSE 80 MG/DL (70-104); POTASSIUM 4.2 MMOL/L (3.5-5.1); SODIUM 143 MMOL/L (135-145); TOTAL CARBON DIOXIDE 26.6 MMOL/L (24-32); TOTAL PROTEIN 7.1 G/DL (6.4-8.2); eGFR 70 ML/MIN
[2020-07-26 21:14] LABS: TROPONIN I < 0.04 NG/ML (0.0-0.05)
[2020-07-26 22:13] VITALS: BP 176/107
== END 2020-07-26 22:15 | disposition home or self-care (01) ==
LOC: ER 18:38
DX: I10 Essential (primary) hypertension (principal); F12.90 Cannabis use, unspecified, uncomplicated; Z87.442 Personal history of urinary calculi; Z86.2 Personal history of diseases of the blood and blood-forming organs and certain disorders involving the immune mechanism; Z87.891 Personal history of nicotine dependence; Z98.890 Other specified postprocedural states; Z79.01 Long term (current) use of anticoagulants; Z79.899 Other long term (current) drug therapy
CPT/HCPCS: 36415; 80053; 84484; 93005; 99284

== ENCOUNTER 2020-07-31 16:24 | Emergency (ER) | payer MEDICAID ==
[~2020-07-31 16:24] MED LIST changes: +[UNRECOGNIZED DRUG - CODE]
== END 2020-07-31 17:39 | disposition left against medical advice (07) ==
LOC: ER 16:24
DX: Z53.21 Procedure and treatment not carried out due to patient leaving prior to being seen by health care provider (principal)

== ENCOUNTER 2020-09-04 17:34 | Emergency (ER) | payer MEDICAID ==
[~2020-09-04] VITALS: Ht 162.6 cm; Wt 113.6 kg
[2020-09-04 18:31] LABS: BASOPHILS % (AUTO) 0.4 % (0-1); EOSINOPHILS # (AUTO) 0.2 X10'3 (0-0.9); HEMATOCRIT 43.6 % (35.0-45.0); HEMOGLOBIN 14.8 g/dl (12.0-16.0); LYMPHOCYTES # (AUTO) 1.6 X10'3 (1.1-4.8); LYMPHOCYTES % (AUTO) 28.8 % (21-51); MEAN CORPUSCULAR HGB CONC 33.9 g/dL (33.0-36.5); MEAN CORPUSCULAR VOLUME 85.6 FL (78-98); MEAN PLATELET VOLUME 8.4 FL (7.4-10.4); MONOCYTES # (AUTO) 0.4 X10'3 (0-0.9); MONOCYTES % (AUTO) 8.1 % (2-12); NEUTROPHILS # (AUTO) 3.3 X10'3 (1.8-7.7); NEUTROPHILS % (AUTO) 59.7 % (42-75); PLATELET COUNT 170 X10'3 (140-440); RED BLOOD COUNT 5.09 X10'6 (4.20-5.60); RED CELL DISTRIBUTION WIDTH 14.3 % (11.5-14.5); WHITE BLOOD COUNT 5.6 X10'3 (4.5-11.0)
[2020-09-04 18:40] LABS: ALANINE AMINOTRANSFERASE 27 U/L (12-78); ALBUMIN 3.5 G/DL (3.4-5.0); ALBUMIN/GLOBULIN RATIO 0.9 (1.1-1.5); ALKALINE PHOSPHATASE 115 IU/L (46-116); ANION GAP 11 (8-16); ASPARTATE AMINO TRANSFERASE 13 U/L (10-37); BILIRUBIN,TOTAL 0.3 MG/DL (0.1-1.0); BLOOD UREA NITROGEN 23 MG/DL (7-18); CALCIUM 8.8 MG/DL (8.5-10.1); CHLORIDE 105 MMOL/L (99-107); CREATININE 0.82 MG/DL (0.40-0.90); GLUCOSE 88 MG/DL (70-104); POTASSIUM 4.3 MMOL/L (3.5-5.1); SODIUM 141 MMOL/L (135-145); TOTAL CARBON DIOXIDE 24.8 MMOL/L (24-32); TOTAL PROTEIN 7.3 G/DL (6.4-8.2); eGFR 72 ML/MIN
[2020-09-04] MEDS ORDERED: cloNIDine 0.1 mg tablet PO ONE (18:40)
--- NOTE | 2020-09-04 19:31 | NUR ---
pt to room, assumed care.
[2020-09-04 19:33] VITALS: BP 142/90
== END 2020-09-04 19:49 | disposition home or self-care (01) ==
LOC: ER 17:36
DX: I10 Essential (primary) hypertension (principal); H53.2 Diplopia; R53.1 Weakness; F12.90 Cannabis use, unspecified, uncomplicated; Z86.2 Personal history of diseases of the blood and blood-forming organs and certain disorders involving the immune mechanism; Z87.442 Personal history of urinary calculi; Z79.2 Long term (current) use of antibiotics; Z79.899 Other long term (current) drug therapy; Z86.16 Personal history of COVID-19
CPT/HCPCS: 36415; 70450; 71045; 80053; 83880; 84484; 85025; 93005; 99285

== ENCOUNTER 2020-09-27 23:08 | Emergency (ER) | payer MEDICAID ==
[~2020-09-27] VITALS: Ht 162.6 cm; Wt 112.3 kg
[2020-09-27 23:22] VITALS: BP 142/83
== END 2020-09-28 02:51 | disposition left against medical advice (07) ==
LOC: ER 23:09
DX: Z76.0 Encounter for issue of repeat prescription (principal); Z53.21 Procedure and treatment not carried out due to patient leaving prior to being seen by health care provider

== ENCOUNTER → 2020-11-10 | Emergency (ER) | payer MEDICAID ==
[~2020-11-10] VITALS: Ht 162.6 cm; Wt 113.6 kg
[~2020-11-10] MED LIST changes: +ALBU8.5H17 INH; -ALBU8.5H8 INH
[2020-11-10 22:07] LABS: BASOPHILS % (AUTO) 0.3 % (0-1); EOSINOPHILS # (AUTO) 0.1 X10'3 (0-0.9); EOSINOPHILS % (AUTO) 2.4 % (0-6); HEMATOCRIT 46.2 % (35.0-45.0); HEMOGLOBIN 15.1 g/dl (12.0-16.0); LYMPHOCYTES # (AUTO) 1.9 X10'3 (1.1-4.8); LYMPHOCYTES % (AUTO) 30.8 % (21-51); MEAN CORPUSCULAR HEMOGLOBIN 28.1 PG (27.0-31.0); MEAN CORPUSCULAR HGB CONC 32.7 g/dL (33.0-36.5); MEAN PLATELET VOLUME 9.1 FL (7.4-10.4); MONOCYTES # (AUTO) 0.5 X10'3 (0-0.9); MONOCYTES % (AUTO) 7.6 % (2-12); NEUTROPHILS # (AUTO) 3.6 X10'3 (1.8-7.7); NEUTROPHILS % (AUTO) 58.9 % (42-75); PLATELET COUNT 172 X10'3 (140-440); RED BLOOD COUNT 5.37 X10'6 (4.20-5.60); RED CELL DISTRIBUTION WIDTH 13.6 % (11.5-14.5); WHITE BLOOD COUNT 6.1 X10'3 (4.5-11.0)
[2020-11-10 22:27] VITALS: BP 142/76
[2020-11-10 22:30] LABS: ALANINE AMINOTRANSFERASE 26 U/L (12-78); ALBUMIN 3.6 G/DL (3.4-5.0); ALKALINE PHOSPHATASE 144 IU/L (46-116); ANION GAP 5 (8-16); ASPARTATE AMINO TRANSFERASE 17 U/L (10-37); BILIRUBIN,TOTAL 0.4 MG/DL (0.1-1.0); BLOOD UREA NITROGEN 21 MG/DL (7-18); BUN/CREATININE RATIO 22.8 (6.6-38.0); CALCIUM 8.8 MG/DL (8.5-10.1); CHLORIDE 110 MMOL/L (99-107); CREATININE 0.92 MG/DL (0.40-0.90); GLUCOSE 96 MG/DL (70-104); POTASSIUM 4.2 MMOL/L (3.5-5.1); SODIUM 145 MMOL/L (135-145); TOTAL CARBON DIOXIDE 29.8 MMOL/L (24-32); TOTAL PROTEIN 7.2 G/DL (6.4-8.2); eGFR 63 ML/MIN
[2020-11-10 22:41] LABS: TROPONIN I < 0.04 NG/ML (0.0-0.05)
== END | disposition home or self-care (01) ==
LOC: ER 20:02
DX: R07.89 Other chest pain (principal); Z86.711 Personal history of pulmonary embolism; Z86.16 Personal history of COVID-19; Z86.2 Personal history of diseases of the blood and blood-forming organs and certain disorders involving the immune mechanism; Z87.440 Personal history of urinary (tract) infections; F12.90 Cannabis use, unspecified, uncomplicated; Z79.899 Other long term (current) drug therapy; Z79.2 Long term (current) use of antibiotics
CPT/HCPCS: 36415; 71045; 80053; 83880; 84484; 85025; 93005; 99285

== ENCOUNTER → 2020-11-20 | Emergency (ER) | payer MEDICAID ==
[~2020-11-20] VITALS: Ht 165.1 cm; Wt 113.6 kg
[2020-11-20 03:17] VITALS: BP 225/101
--- NOTE | 2020-11-20 04:57 | NUR ---
patient left the ER lobby
== END | disposition left against medical advice (07) ==
LOC: ER 02:09
DX: I10 Essential (primary) hypertension (principal); Z53.21 Procedure and treatment not carried out due to patient leaving prior to being seen by health care provider

== ENCOUNTER → 2023-06-24 | Outpatient (CLI) | payer MEDICAID ==
[~2023-06-24] MED LIST changes: +ACET-2119 PO; -ASCO500C18 PO; +ASPI81TA52 PO; +ATOR40TA PO; -CEPH-585 PO; +FLUO20CA39 PO; +GABA-530 PO; +LOSA-415 PO; -METO-395 PO; +METOPROLOL PO; -NICO-631 TD; +OMEP40CA21 PO; -PANT40TA54 PO; -[UNRECOGNIZED DRUG - CODE]
== END | disposition home or self-care (01) ==
LOC: 64 CT 13:46
PROVIDERS: ATTEND Physician Assistant
DX: Z12.2 Encounter for screening for malignant neoplasm of respiratory organs (principal); K44.9 Diaphragmatic hernia without obstruction or gangrene; K76.89 Other specified diseases of liver; I70.0 Atherosclerosis of aorta; I25.10 Atherosclerotic heart disease of native coronary artery without angina pectoris
CPT/HCPCS: 71271